=== PATIENT | male | born 1985 | race Caucasian/White ===

== ENCOUNTER 2023-03-09 07:25 | Emergency (ER) | payer SELFPAY ==
[2023-03-09] MEDS ORDERED: dexAMETHasone 10 MG/ML VIAL ONE (08:10)
[2023-03-09] MEDS ORDERED: KETOROLAC 30 MG/ML INJ ONE (08:10)
[2023-03-09] MEDS ORDERED: MORPHINE 4 MG/ML SYR ONE (08:10)
--- NOTE | 2023-03-09 08:17 | RAD REPORT ---
[facility] - 03[facility]09/2023 8:08 am CLINICAL HISTORY: back pain COMPARISON: No comparisons TECHNIQUE: CT of the abdomen and pelvis was performed. All CT scans are performed using dose optimization technique as appropriate and may include automated exposure control or mA/KV adjustment according to patient size. FINDINGS: Lower chest: No acute abnormality. Liver: No acute abnormality or suspicious lesions. Biliary: No biliary ductal dilatation. Stomach: No significant focal abnormality. Duodenum: No significant focal abnormality. Pancreas: No significant abnormality. Spleen: No significant abnormality. Adrenal: No suspicious lesions. Kidney/ureter: No hydronephrosis. No renal calculi. Retroperitoneum: No retroperitoneal adenopathy. Vascular: No aneurysm. Bowel: No significant focal abnormality. Normal appendix. Peritoneum: No ascites or free air. Bladder: Grossly unremarkable. Reproductive: No adnexal masses. Bones: No acute fracture. Other: n/a IMPRESSION: No acute intra-abdominal or pelvic finding. Normal appendix. No urinary tract calculi.
[2023-03-09 08:21] LABS: Absolute Lymphocytes (CBC) 2.4 K/uL (0.7-4.9); Hematocrit 47.2 % (39.6-49.0); Lymphocytes % 22.7 % (15.3-44.8); MCV 89.6 fL (80-100); MPV 7.8 fL (7.6-11.3); RBC Red Blood Cell Count 5.26 M/uL (4.33-5.43)
[2023-03-09 08:31] LABS: Specific Gravity 1.017 (1.005-1.030); Urine Bilirubin NEGATIVE (Negative); Urine Blood Negative (Negative); Urine Clarity Clear (Clear); Urine Color Light-Yellow (Yellow); Urine Glucose NEGATIVE (Negative); Urine Protein NEGATIVE (Negative); Urine Urobilinogen Normal (Normal); Urine pH 5.5 (5.0-7.0)
[2023-03-09 08:35] LABS: Potassium 4.2 mEq/L (3.5-5.1)
--- NOTE | 2023-03-09 09:08 | ER ---
Nurse's Notes [facility] Name: Bernard Leon Age: 38 yrs Sex: Male : 1985 Arrival Date: 03/09/2023 Time: 07:25 Bed 20 Private MD: Diagnosis: Low back pain;Muscle spasm of back;Radiculopathy, lumbar region Presentation: 03/09 07:34 Chief complaint: Patient states: B low back pain for 2 days. No fever or urinary ll1 symptoms. Coronavirus screen: Vaccine status: Patient reports being unvaccinated. Client denies travel out of the [place] in the last 14 days. At this time, the client does not indicate any symptoms associated with coronavirus-19. Ebola Screen: Patient denies travel to an Ebola-affected area in the 21 days before illness onset. Initial Sepsis Screen: Does the patient meet any 2 criteria? No. Patient's initial sepsis screen is negative. Does the patient have a suspected source of infection? No. Patient's initial sepsis screen is negative. Risk Assessment: Do you want to hurt yourself or someone else? Patient reports no desire to harm self or others. Onset of symptoms was March 08, 2023. 07:34 Method Of Arrival: Ambulatory ll1 07:34 Acuity: RAUL 3 ll1 Historical: - Allergies: 07:34 No Known Allergies; ll1 - PMHx: 07:34 None; ll1 - PSHx: 07:34 ACL repair; ll1 - Immunization history:: Adult Immunizations up to date, Client reports having NOT received the Covid vaccine. - Social history:: Smoking status: Patient reports the use of cigarette tobacco products, smokes one-half pack cigarettes per day. - Family history:: not pertinent. - Hospitalizations: : No recent hospitalization is reported. Screenin:35 [facility] ED Fall Risk Assessment (Adult) History of falling in the last 3 months, kc6 including since admission No falls in past 3 months (0 pts) Confusion or Disorientation No (0 pts) Intoxicated or Sedated No (0 pts) Impaired Gait No (0 pts) Mobility Assist Device Used No (0 pt) Altered Elimination No (0 pt) Score/Fall Risk Level 0 - 2 = Low Risk Oriented to surroundings, Maintained a safe environment, Educated pt \T\ family on fall prevention, incl call for assistance when getting out of bed, Assessed \T\ reinforced patient's understanding of fall precautions, Hourly rounding (assess needs \T\ fall precautionary measures) done. Abuse screen: Denies threats or abuse. Denies injuries from another. Nutritional screening: No deficits noted. Tuberculosis screening: No symptoms or risk factors identified. Assessment: 07:34 General: Appears in no apparent distress. uncomfortable, Behavior is calm, cooperative, kc6 appropriate for age. Pain: Complains of pain in back Pain does not radiate. Pain currently is 6 out of 10 on a pain scale. Neuro: Escobar Agitation-Sedation Scale (RASS): 0 - Alert and Calm Level of Consciousness is awake, alert, obeys commands, Oriented to person, place, time, situation, Appropriate for age. Cardiovascular: Capillary refill < 3 seconds. Respiratory: Airway is patent Trachea midline Respiratory effort is even, unlabored, Respiratory pattern is regular, symmetrical. GI: No signs and/or symptoms were reported involving the gastrointestinal system. : No signs and/or symptoms were reported regarding the genitourinary system. EENT: No signs and/or symptoms were reported regarding the EENT system. Derm: No signs and/or symptoms reported regarding the dermatologic system. Skin is intact, Skin is pink, warm \T\ dry. Musculoskeletal: No signs and/or symptoms reported regarding the musculoskeletal system. Circulation, motion, and sensation intact. Capillary refill < 3 seconds, Range of motion: intact in all extremities. 08:34 Reassessment: Patient appears in no apparent distress at this time. No changes from kc6 previously documented assessment. Patient and/or family updated on plan of care and expected duration. Pain level reassessed. Patient is alert, oriented x 3, equal unlabored respirations, skin warm/dry/pink. Vital Signs: 07:34 BP 146 / 96; Pulse 83; Resp 17; Temp 97.9; Pulse Ox 96% on R/A; Weight 102.06 kg; ll1 Height 5 ft. 9 in. ; Pain 6/10; 08:29 BP 133 / 88; Pulse 88; Resp 17 S; Pulse Ox 94% on R/A; kc6 07:34 Body Mass Index 33.23 (102.06 kg, 175.26 cm) [facility] 07:34 Pain Scale: Adult ll1 ED Course: 07:27 Patient arrived in ED. rg4 07:29 Morenita Salazar, RN is Primary Nurse. kc6 07:34 Arm band placed on Patient placed in an exam room, on a stretcher. ll1 07:36 Triage completed. ll1 07:36 Patient has correct armband on for positive identification. Bed in low position. Call kc6 light in reach. Side rails up X 1. 07:37 Travis Acevedo MD is Attending Physician. rn 08:03 Basic Metabolic Panel Sent. bc6 08:03 CK Sent. bc6 08:03 CBC with Diff Sent. bc6 08:03 Initial lab(s) drawn, by me, sent to lab. Inserted saline lock: 20 gauge in right bc6 antecubital area, using aseptic technique. 08:09 CT Stone Protocol In Process Unspecified. EDMS 08:23 Urinalysis w/ reflexes Sent. kc6 09:18 No provider procedures requiring assistance completed. IV discontinued, intact, kc6 bleeding controlled, No redness/swelling at site. Pressure dressing applied. Administered Medications: 08:23 Drug: morphine IVP or IV 4 mg Route: IVP; Infused Over: 4 mins; Site: right antecubital;kc6 09:11 Follow up: Response: No adverse reaction; Pain is decreased; RASS: Alert and Calm (0) kc6 08:23 Drug: Ketorolac IVP 15 mg Route: IVP; Site: right antecubital; kc6 09:11 Follow up: Response: No adverse reaction; Pain is decreased kc6 08:23 Drug: Decadron - Dexamethasone IVP 10 mg Route: IVP; Site: right antecubital; kc6 09:11 Follow up: Response: No adverse reaction kc6 Medication: 09:18 VIS not applicable for this client. kc6 Outcome: 09:08 Discharge ordered by . rn 09:18 Discharged to home ambulatory. kc6 09:18 Condition: improved 09:18 Discharge instructions given to patient, Instructed on discharge instructions, follow up and referral plans. medication usage, Demonstrated understanding of instructions, follow-up care, medications, Prescriptions given X 3. 09:18 Patient left the ED. kc6 Signatures: Dispatcher [employer] EDMS Travis Acevedo MD MD rn Garcia, Rubi rg4 Jc Butler RN RN ll1 Morenita Salazar RN RN kc6 Jael Montalvo bc6 Corrections: (The following items were deleted from the chart) 08:02 07:34 Acuity: RAUL 4 ll1 ll1 09:11 08:28 Reassessment: Patient appears in no apparent distress at this time. No changes kc6 from previously documented assessment. Patient and/or family updated on plan of care and expected duration. Pain level reassessed. Patient is alert, oriented x 3, equal unlabored respirations, skin warm/dry/pink. kc6
--- NOTE | 2023-03-09 09:09 | EDPHYS ---
Physician Documentation [facility] Name: Bernard Leon Age: 38 yrs Sex: Male : 1985 Arrival Date: 03/09/2023 Time: 07:25 Bed 20 Private MD: ED Physician Travis Acevedo HPI: 03/09 08:28 This 38 yrs old Male presents to ER via Ambulatory with complaints of Back Pain. rn 08:28 The patient presents with pain that is acute, with no known mechanism of injury. The rn symptoms are located in the low back. Onset: The symptoms/episode began/occurred 2 day(s) ago. The pain radiates to the right leg and left leg. Associated signs and symptoms: Pertinent positives: none Pertinent negatives: abdominal pain, chest pain, dysuria, fever, hematuria, incontinence, nausea, numbness, tingling, urinary retention, vomiting, weakness. Modifying factors: The patient symptoms are alleviated by remaining still, the patient symptoms are aggravated by bending, movement. Severity of symptoms: At their worst the symptoms were moderate, in the emergency department the symptoms are unchanged. The patient has not experienced similar symptoms in the past. The patient has not recently seen a physician. Pt reports low back pain, with radiation down legs, no bowel/bladder problems, no weakness, no fever. No hx of kidney stones but father had kidney stones. 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 No trauma. . Historical: - Allergies: 07:34 No Known Allergies; ll1 - PMHx: 07:34 None; ll1 - PSHx: 07:34 ACL repair; ll1 - Immunization history:: Adult Immunizations up to date, Client reports having NOT received the Covid vaccine. - Social history:: Smoking status: Patient reports the use of cigarette tobacco products, smokes one-half pack cigarettes per day. - Family history:: not pertinent. - Hospitalizations: : No recent hospitalization is reported. ROS: 08:28 Constitutional: Negative for fever, chills, and weight loss, Cardiovascular: Negative rn for chest pain, palpitations, and edema, Respiratory: Negative for shortness of breath, cough, wheezing, and pleuritic chest pain, Abdomen/GI: Negative for abdominal pain, nausea, vomiting, diarrhea, and constipation, Back: + low back pain MS/Extremity: Negative for injury and deformity, Skin: Negative for injury, rash, and discoloration, Neuro: Negative for headache, weakness, numbness, tingling, and seizure. Exam: 08:28 Constitutional: This is a well developed, well nourished patient who is awake, alert, rn appears uncomfortable Head/Face: Normocephalic, atraumatic. Cardiovascular: Regular rate and rhythm. No pulse deficits. Respiratory: No increased work of breathing, no retractions or nasal flaring. Abdomen/GI: Soft, non-tender Back: No spinal tenderness. MS/ Extremity: Pulses equal, no cyanosis. Neurovascular intact. Full, normal range of motion. Equal circumference. Neuro: Awake and alert, GCS 15, Motor strength 5/5 in all extremities. Sensory grossly intact. Vital Signs: 07:34 BP 146 / 96; Pulse 83; Resp 17; Temp 97.9; Pulse Ox 96% on R/A; Weight 102.06 kg; ll1 Height 5 ft. 9 in. ; Pain 6/10; 08:29 BP 133 / 88; Pulse 88; Resp 17 S; Pulse Ox 94% on R/A; kc6 07:34 Body Mass Index 33.23 (102.06 kg, 175.26 cm) ll1 07:34 Pain Scale: Adult ll1 MDM: 07:37 Patient medically screened. rn 09:07 Differential diagnosis: arthritis, Osteoarthritis Ureterolithiasis disk problem, rn radiculopathy, muscle spasm. Data reviewed: vital signs, nurses notes, lab test result(s), radiologic studies, CT scan, and as a result, I will discharge patient. Counseling: I had a detailed discussion with the patient and/or guardian regarding: the historical points, exam findings, and any diagnostic results supporting the discharge/admit diagnosis, radiology results, the need for outpatient follow up, to return to the emergency department if symptoms worsen or persist or if there are any questions or concerns that arise at home. Response to treatment: the patient's symptoms have markedly improved after treatment, and as a result, I will discharge patient. Special discussion: I discussed with the patient/guardian in detail that at this point there is no indication for admission to the hospital. It is understood, however, that if the symptoms persist or worsen the patient needs to return immediately for re-evaluation. 03/09 07:53 Order name: CBC with Diff; Complete Time: 08:45 rn 03/09 07:53 Order name: Basic Metabolic Panel; Complete Time: 08:45 rn 03/09 07:53 Order name: CK; Complete Time: 08:45 rn 03/09 07:53 Order name: Urinalysis w/ reflexes; Complete Time: 08:45 rn 03/09 07:53 Order name: CT Stone Protocol; Complete Time: 08:24 rn 03/09 07:53 Order name: IV Start; Complete Time: 08:03 rn Administered Medications: 08:23 Drug: morphine IVP or IV 4 mg Route: IVP; Infused Over: 4 mins; Site: right antecubital;kc6 09:11 Follow up: Response: No adverse reaction; Pain is decreased; RASS: Alert and Calm (0) [facility] 08:23 Drug: Ketorolac IVP 15 mg Route: IVP; Site: right antecubital; kc6 09:11 Follow up: Response: No adverse reaction; Pain is decreased kc6 08:23 Drug: Decadron - Dexamethasone IVP 10 mg Route: IVP; Site: right antecubital; kc6 09:11 Follow up: Response: No adverse reaction kc6 Disposition Summary: 03/09/23 09:08 Discharge Ordered Location: Home rn Problem: new rn Symptoms: have improved rn Condition: Stable rn Diagnosis - Low back pain rn - Muscle spasm of back rn - Radiculopathy, lumbar region rn Followup: rn - With: Private Physician - When: As needed - Reason: Recheck today's complaints, Re-evaluation by your physician Discharge Instructions: - Discharge Summary Sheet rn - Acute Back Pain, Adult rn - Muscle Cramps and Spasms rn - Musculoskeletal Pain rn - Back Exercises rn Forms: - Medication Reconciliation Form rn - Thank You Letter rn - Antibiotic record label intern - Prescription Opioid Use rn - Work release form kc6 Prescriptions: - Cyclobenzaprine 10 mg Oral Tablet - take 1 tablet by ORAL route every 8 hours As needed; 15 tablet; Refills: 0, rn Product Selection Permitted - Tramadol 50 mg Oral Tablet - take 1 tablet by ORAL route every 8 hours as needed; 12 tablet; Refills: 0, rn Product Selection Permitted - Medrol (Kali) 4 mg Oral Tablets, Dose Pack - take 1 tablet by ORAL route as directed - follow package instructions; 1 rn packet; Refills: 0, Product Selection Permitted Signatures: Dispatcher [employer] EDMS Acevedo, Travis, MD MD rn Jc Butler RN RN ll1 Morenita Salazar RN RN kc6
[2023-03-09 09:35] VITALS: TEMP 97.9
[2023-03-09 09:45] VITALS: BP 133/88; O2SAT 94
== END 2023-03-09 09:18 | disposition home or self-care (01) ==
LOC: ER 07:25
DX: M62.830 Muscle spasm of back (principal); M54.16 Radiculopathy, lumbar region; F17.210 Nicotine dependence, cigarettes, uncomplicated
CPT/HCPCS: 36415; 74176; 76377; 80048; 81003; 82550; 85025; 96374; 96375; 99284; J1100